=== PATIENT | female | born 1960 | race Caucasian/White ===

== ENCOUNTER 2016-09-20 13:23 | Emergency (ER) | payer OTHER ==
[~2016-09-20] VITALS: Wt 68.0 kg
[~2016-09-20 13:23] MED LIST: BENA10TA48 PO; CIPR500T4 PO; METR500T PO; OMEP20CA16 PO; ONDA4TAB14 PO
[2016-09-20] MEDS: ACETAMINOPHEN/CODEINE #3 TAB PO STA ×2 (15:44→16:01)
[2016-09-20] MEDS: ACETAMINOPHEN 500 MG TAB PO STA ×2 (15:59→16:15)
[2016-09-20] MEDS ORDERED: LIDOCAINE 1%/EPI (MDV) 20 ML INJ INJ ONE (16:00)
[2016-09-20] MEDS ORDERED: CEPH-443 PO (16:33)
[2016-09-20] MEDS ORDERED: BACTDS PO (16:33)
[2016-09-20 16:50] VITALS: BP 135/65; PULSE 65; RESP 18; TEMP 98.9
--- NOTE | 2016-09-20 16:55 | ERD ---
ER Documentation Chief Complaint Date/Time DATE: 09/20/16 TIME: 16:52 Chief Complaint VAGINAL CYST FOR 1 WEEK. NO FEVERS. NO DRAINAGE NOTED. MOD PAIN HPI This is a 56-year-old female presenting to the emergency department complaining of a bump on her right side of her groin for the past week. Patient states that it has been very tender stating is moderate in severity. She denies any fevers or drainage. ROS All systems reviewed and are negative except as per history of present illness. Medications Home Meds Active Scripts Sulfamethoxazole-Trimethoprim* (Bactrim* DS) 800-160 Mg Tab, 1 TAB PO BID for 5 Days, TAB Prov:DAYNA LINC 09/20/16 Cephalexin* (Keflex*) 500 Mg Capsule, 500 MG PO QID for 10 Days, CAP Prov:DAYNA LIN PA-C 09/20/16 Ondansetron (Ondansetron Odt) 4 Mg Tab.rapdis, 4 MG PO Q6H Y for NAUSEA AND/OR VOMITING, #10 TAB Prov:VALERIA MCCOY. 05/23/16 Metronidazole* (Flagyl*) 500 Mg Tablet, 500 MG PO TID for 7 Days, TAB Prov:VALERIA CMCOY 05/23/16 Ciprofloxacin Hcl* (Ciprofloxacin Hcl*) 500 Mg Tablet, 500 MG PO BID for 7 Days , TAB Prov:VALERIA MCCOY. 05/23/16 Reported Medications Omeprazole* (Omeprazole*) 20 Mg Capsule.dr, 20 MG PO BID, #60 CAP 05/23/16 Benazepril Hcl* (Benazepril Hcl*) 10 Mg Tablet, 10 MG PO DAILY, #30 TAB 05/23/16 Allergies Allergies: Coded Allergies: No Known Allergy (Unverified , 05/23/16) PMhx/Soc History of Surgery: Yes ( x3, tubal ligation, abd hernia) Anesthesia Reaction: No Hx Neurological Disorder: No Hx Respiratory Disorders: No Hx Cardiac Disorders: Yes (HTN, high cholesterol) Hx Psychiatric Problems: No Hx Miscellaneous Medical Probl: Yes (GERD) Hx Alcohol Use: No Hx Substance Use: No Hx Tobacco Use: No Physical Exam Vitals Vital Signs Date Time Temp Pulse Resp B/P Pulse Ox O2 Delivery O2 Flow Rate FiO2 09/20/16 13:31 98.9 105 21 139/71 98 Physical Exam GENERAL: well-developed/well-nourished, in no apparent distress, non-toxic appearing HENT: NC/AT EYES: Conjunctiva normal NECK: Supple, no lymphadenopathy PULM: CTA bilaterally, no rales, rhonchi, or wheezing heard CV: Normal S1S2, RRR, good capillary refill GI: Soft, non-distended, Normal bowel sounds, no masses or organomegaly felt on exam No gross peritonitis, no bruits Negative Rosvings, negative Callejas, negative McBurney's point, negative CVAT : PELVIC EXAM:nml BACK: No midline tenderness, no masses EXT: No clubbing, cyanosis, or edema NEURO: Alert and Orientated, gait normal SKIN: Erythematous indurated patch on the right groin PSYCH: Normal mood and mentation Results 24 hrs Current Medications Medications (Trade) Dose Ordered Sig/Kenneth Route PRN Reason Start Time Stop Time Status Last Admin Dose Admin Lidocaine/ Epinephrine (Xylocaine 1%/ Epi (Mdv) 20 ml) 20 ml ONCE ONCE INJ 09/20/16 16:00 09/20/16 16:01 DC Acetaminophen/ Codeine Phosphate (Tylenol No.3) 1 tab ONCE STAT PO 09/20/16 15:36 09/20/16 15:38 DC Acetaminophen (Tylenol Tab) 1,000 mg ONCE STAT PO 09/20/16 15:45 09/20/16 15:47 DC 09/20/16 16:15 Procedures/MDM This is a 56-year-old female presenting to the emergency department complaining of a bump on her right groin for the past week which is likely due to cellulitis versus Hidradenitis Suppurativa. On examination I attempted to drain however no purulence was able to obtain. Patient is suitable for antibiotic outpatient and to follow with her primary care physician tomorrow. There was no evidence of osteomylelitis, lymphangitis, necrotizing fasciitis. Prescription for Keflex and Bactrim was given. Hemodynamically stable. Discussed two day wound check. return sooner if condition worsens. Patient understood and agreed with this plan. PROCEDURE NOTE: Verbal consent was obtained Wound was irrigated with normal saline Wound was cleansed with Betadine 6cc Lidocaine 1% with epinephrine was used as a local anesthetic #11 blade scalpel was used for a single incision. Procedure tolerated without complications Wound dressed with sterile guaze. Departure Diagnosis: Primary Impression: Cellulitis Condition: Stable Patient Instructions: Cellulitis, Hidradenitis Suppurativa, Abx Additional Instructions: Visite a wheatley mdnick sifuentes para un EXAMEN.Regrese a estas instalaciones si no se mejora olga esperbamos o olga le dijimos. [place] toda la medicina jack y olga se le indic. Regrese a estas instalaciones si no se mejora olga esperbamos o olga le dijimos. DAYNA LIN PA-C Sep 20, 2016 16:55
== END 2016-09-20 16:50 | disposition home or self-care (01) ==
LOC: FTE 13:23
DX: L03.314 Cellulitis of groin (principal); I10 Essential (primary) hypertension
CPT/HCPCS: 10060; Z7502; Z7610